=== PATIENT | male | born 1955 | race Caucasian/White ===

== ENCOUNTER 2022-11-18 13:53 | Inpatient (IN) | payer OTHER, BC ==
[~2022-11-18] VITALS: Ht 175.3 cm; Wt 122.0 kg
[2022-11-18 14:06] VITALS: BP 158/69
--- NOTE | 2022-11-18 14:16 | NUR ---
67 y/o male biba from [facility], c/o sob, increased wheezing, cough, congestion that worsened today. pt on RA at scene was 91%, pt was started on nebulizer tx, pt o2 saturation was 93% ra, fire placed pt on nc 4L currently saturation at 96%. a&ox4, ambulates with steady gait. pt still has audible crackles after neb tx, but states he feels less sob. pt currently at 95% at ra. pmh: htn, afib, ablation nka med: valsartan, eliquis, multaq, carvedilol
--- NOTE | 2022-11-18 14:23 | NUR ---
covid and flu swabbed at this time
[2022-11-18] MEDS ORDERED: methylPREDNISolone SS 125 MG/2 ML VIAL IVP ONE (14:25)
[2022-11-18] MEDS ORDERED: ALBUTEROL SULFATE/IPRATROPIU 3 ML SOL IH ONE (14:25)
[2022-11-18 14:57] LABS: BASOPHILS # (AUTO) 0.3 K/uL (0.00-0.22); BASOPHILS % (AUTO) 1.2 % (0.0-2.0); EOSINOPHILS # (AUTO) 0.1 K/uL (0-0.4); EOSINOPHILS % (AUTO) 0.3 % (0.0-4.0); HEMATOCRIT 33.1 % (36-52); HEMOGLOBIN 10.6 g/dL (12.0-18.0); LYMPHOCYTES # (AUTO) 3.1 K/uL (2.0-11.5); LYMPHOCYTES % (AUTO) 14.3 % (20.5-51.1); MEAN CORPUSCULAR HEMOGLOBIN 21 pg (27-31); MEAN CORPUSCULAR HGB CONC 32 g/dL (33-37); MEAN CORPUSCULAR VOLUME 64.6 fL (80-94); MONOCYTES # (AUTO) 1.3 K/uL (0.8-1.0); MONOCYTES % (AUTO) 6.2 % (1.7-9.3); NEUTROPHILS # (AUTO) 16.9 K/uL (1.8-7.7); PLATELET COUNT (AUTO) 424 K/uL (140-450); RED BLOOD CELL COUNT(AUTO) 5.13 MIL/uL (4.20-6.10); RED CELL DISTRIBUTION WIDTH 19.9 % (11.6-13.7)
[2022-11-18 15:12] LABS: ANION GAP 9.1 (8-16); CARBON DIOXIDE 30.8 mmol/L (21-32); CREATININE 0.9 mg/dL (0.6-1.3); POTASSIUM 3.9 mmol/L (3.5-5.1)
[2022-11-18 15:17] LABS: WHITE BLOOD COUNT (AUTO) 21.7 K/uL (4.8-10.8)
--- NOTE | 2022-11-18 15:17 | NUR ---
received in [facility] for sob, wheezing, cough. per ems spo2 90 % ra. albuterol tx en route and in ed. spo2 94 %. hx afib, ablation, htn. ble edema 1 +. resp even and nonlabored. speaks f/c sentences. denies chest pain,n,v,d,fever, chills. aao x4
[2022-11-18 15:19] LABS: ALBUMIN 3.6 g/dL (3.4-5.0); TOTAL BILIRUBIN 2.4 mg/dL (0.0-1.0)
[2022-11-18] MEDS ORDERED: AZITHROMYCIN 500 MG in DEXTROSE 5% 250 ML IV ONE (15:30)
[2022-11-18] MEDS ORDERED: cefTRIAXone 1,000 MG VIAL ONE ×2 (15:43→15:59)
[2022-11-18] MEDS ORDERED: AZITHROMYCIN 500 MG INJ VIAL IV ONE (15:59)
--- NOTE | 2022-11-18 16:11 | NUR ---
blood cx drawn by lab. iv atb initiated. spo2 88 % ra. placed on o2 @ 2lpm via ns. spo2 improved to 94 %. pending admission
[2022-11-18] MEDS ORDERED: POTASSIUM CHLORIDE 10 MEQ TABER PO PRN (16:50)
[2022-11-18] MEDS ORDERED: MAG SULF 2000 MG/WATER PREMIX 50 ML IV PRN (16:50)
[2022-11-18] MEDS ORDERED: LORazepam 2 MG/ML VIAL IVP PRN (16:50)
[2022-11-18] MEDS ORDERED: DOCUSATE SODIUM 100 MG GELCAP PO PRN (16:50)
[2022-11-18] MEDS ORDERED: ONDANSETRON 4 MG/2 ML VIAL IVP PRN (16:50)
[2022-11-18] MEDS ORDERED: CARV6.25 PO (16:54)
[2022-11-18] MEDS ORDERED: HYDR-4004 PO (16:54)
[2022-11-18] MEDS ORDERED: VALS160T2 PO (16:54)
[2022-11-18] MEDS ORDERED: ROSU10TA1 PO (16:54)
[2022-11-18] MEDS ORDERED: APIX5TAB PO (16:54)
[2022-11-18] MEDS ORDERED: AMLO5TAB PO (16:54)
[2022-11-18] MEDS ORDERED: DRON400T5 PO (16:54)
--- NOTE | 2022-11-18 16:54 | NUR ---
resting in [place]. aao x4. resp even and nonlabored. vss. on o2 @ 2lpm via c. med rec done. pending admission
[2022-11-18] MEDS: AZITHROMYCIN 500 MG in DEXTROSE 5% 250 ML IV SCH (17:00)
--- NOTE | 2022-11-18 18:53 | NUR ---
given dinner tray
--- NOTE | 2022-11-18 19:15 | NUR ---
report given to chastity chamberlain
--- NOTE | 2022-11-18 19:30 | NUR ---
Resting comfortably at this time. No s/s distress.
[2022-11-18] MEDS ORDERED: methylPREDNISolone SS 40 MG in WATER STERILE 1 ML IV SCH (21:00)
[2022-11-18] MEDS ORDERED: ZOLPIDEM 5 MG TAB ONE (21:22)
[2022-11-18] MEDS: methylPREDNISolone SS 40 MG/ML VIAL IVP SCH (21:28)
[2022-11-18] MEDS: carvediloL 6.25 MG TAB PO SCH (21:30)
[2022-11-18] MEDS: APIXABAN 2.5 MG TAB PO SCH (21:30)
[2022-11-18] MEDS: ZOLPIDEM 10 MG TAB PO PRN (21:31)
--- NOTE | 2022-11-18 21:50 | NUR ---
Pt assisted to restroom. Gait steady. No s/s distress.
--- NOTE | 2022-11-18 23:20 | NUR ---
Pt resting comfortably. extra pillows given
--- NOTE | 2022-11-19 00:31 | NUR ---
Assisted to restroom, gait steady. Noted with SOB when ambulating. VSS. O2 sat 91% on 2L
--- NOTE | 2022-11-19 03:52 | NUR ---
Resting comfortably at this time. No s/s distress noted. VSS. O2 sat 91% on RA
[2022-11-19] MEDS: ACETAMINOPHEN 325 MG TAB PO PRN (04:23)
--- NOTE | 2022-11-19 04:23 | NUR ---
Pt c/o 01/20 generalized pain. prn tylenol given as ordered.
--- NOTE | 2022-11-19 05:39 | NUR ---
Pt noted resting comfortably. No s/s discomfort. No s/s distress. VSS
--- NOTE | 2022-11-19 07:24 | NUR ---
Report given to Juno CHACON
--- NOTE | 2022-11-19 07:25 | NUR ---
PT CALM AND RESTING. AAO4, VITALS STABLE.
[2022-11-19 07:28] LABS: HEMOGLOBIN 10.3 g/dL (12.0-18.0); MEAN CORPUSCULAR HEMOGLOBIN 20 pg (27-31); MEAN CORPUSCULAR HGB CONC 31 g/dL (33-37); MEAN CORPUSCULAR VOLUME 65.2 fL (80-94); PLATELET COUNT (AUTO) 413 K/uL (140-450); RED BLOOD CELL COUNT(AUTO) 5.06 MIL/uL (4.20-6.10); RED CELL DISTRIBUTION WIDTH 20.2 % (11.6-13.7); WHITE BLOOD COUNT (AUTO) 21.5 K/uL (4.8-10.8)
[2022-11-19 07:44] LABS: ANION GAP 8.5 (8-16); CREATININE 0.8 mg/dL (0.6-1.3); POTASSIUM 4.5 mmol/L (3.5-5.1)
[2022-11-19 08:30] LABS: BASOPHILS % (MANUAL) 0 % (0-2); EOSINOPHILS % (MANUAL) 0 % (0-4); LYMPHOCYTES % (MANUAL) 3 % (20-46); MONOCYTES % (MANUAL) 1 % (5-12)
[2022-11-19] MEDS: carvediloL 6.25 MG TAB PO SCH (09:17)
[2022-11-19] MEDS: methylPREDNISolone SS 40 MG/ML VIAL IVP SCH ×2 (09:17→21:42)
[2022-11-19] MEDS: APIXABAN 2.5 MG TAB PO SCH ×2 (09:18→21:43)
--- NOTE | 2022-11-19 09:30 | NUR ---
RT AT BEDSIDE FOR BR TX
[2022-11-19] MEDS: hydroCHLOROthiazide 25 MG TAB PO SCH (09:34)
[2022-11-19] MEDS: ALBUTEROL 0.083% 2.5 MG/3 ML NEBU INH PRN ×2 (11:04→13:45)
--- NOTE | 2022-11-19 16:56 | NUR ---
MOVED TO ER BED 5
[2022-11-19] MEDS ORDERED: AZITHROMYCIN 500 MG INJ VIAL IV ONE ×2 (17:20→18:13)
[2022-11-19] MEDS ORDERED: cefTRIAXone 1,000 MG VIAL ONE (17:21)
[2022-11-19] MEDS: amLODIPine 5 MG TAB PO SCH (17:30)
[2022-11-19] MEDS: AZITHROMYCIN 500 MG in DEXTROSE 5% 250 ML IV SCH (18:19)
[2022-11-19] MEDS ORDERED: FUROSEMIDE 20 MG/2 ML VIAL IVP SCH (18:40)
--- NOTE | 2022-11-19 20:34 | NUR ---
initial assessment- pt sitting upright on 2l nasal canula, aox4, says he came in for unrelieved breathing difficulties. reports no currents episode of distress but wants to have rt come give breathing treatment sometime in the night. ambulates to restroom without assistance. states he wants to home in the morning no matter what. 400 ml of urine noted to be in urinal. calm and positive affect noted with a sign of impatience
--- NOTE | 2022-11-19 20:35 | NUR ---
Respiratory Therapist at bedside for respiratory intervention.
[2022-11-19] MEDS: VALSARTAN 80 MG TAB PO SCH (21:42)
[2022-11-19] MEDS: MORPHINE SULFATE 2 MG/ML SYR IVP PRN (21:43)
[2022-11-19] MEDS: ZOLPIDEM 10 MG TAB PO PRN (23:41)
[2022-11-20] MEDS: ALBUTEROL 0.083% 2.5 MG/3 ML NEBU INH PRN ×3 (02:24→20:03)
[2022-11-20 06:47] LABS: HEMATOCRIT 32.7 % (36-52); HEMOGLOBIN 10.4 g/dL (12.0-18.0); MEAN CORPUSCULAR HEMOGLOBIN 21 pg (27-31); MEAN CORPUSCULAR HGB CONC 32 g/dL (33-37); MEAN CORPUSCULAR VOLUME 64.6 fL (80-94); PLATELET COUNT (AUTO) 410 K/uL (140-450); RED BLOOD CELL COUNT(AUTO) 5.06 MIL/uL (4.20-6.10); RED CELL DISTRIBUTION WIDTH 20.2 % (11.6-13.7)
[2022-11-20 07:14] LABS: ANION GAP 12.4 (8-16); CARBON DIOXIDE 30.8 mmol/L (21-32); CREATININE 0.9 mg/dL (0.6-1.3); POTASSIUM 4.2 mmol/L (3.5-5.1)
--- NOTE | 2022-11-20 07:15 | NUR ---
Report recieved from [facility] Tavares for transfer of care.
--- NOTE | 2022-11-20 08:10 | NUR ---
Patient was offered breakfast tray. Left tray at bedside.
--- NOTE | 2022-11-20 08:18 | NUR ---
Patient ambulated to restroom with steady gait.
[2022-11-20] MEDS: methylPREDNISolone SS 40 MG/ML VIAL IVP SCH ×2 (08:33→21:22)
[2022-11-20] MEDS: APIXABAN 2.5 MG TAB PO SCH ×2 (08:34→21:18)
[2022-11-20] MEDS: hydroCHLOROthiazide 25 MG TAB PO SCH (08:35)
[2022-11-20] MEDS: VALSARTAN 80 MG TAB PO SCH ×2 (08:35→22:52)
[2022-11-20 09:08] LABS: WHITE BLOOD COUNT (AUTO) 30.3 K/uL (4.8-10.8)
[2022-11-20 09:09] LABS: CORRECTED WHITE BLOOD COUNT 28.9 K/uL (4.5-11.0); LYMPHOCYTES % (MANUAL) 4 % (20-46); MONOCYTES % (MANUAL) 2 % (5-12)
[2022-11-20] MEDS ORDERED: MELATONIN 3 MG TAB PO PRN ×2 (09:22→09:24)
--- NOTE | 2022-11-20 09:25 | NUR ---
PATIENT HAS BEEN SCREENED AND CATEGORIZED MODERATE NUTRITION RISK. PATIENT WILL BE SEEN WITHIN 3-5 DAYS OF ADMISSION. 11/18/22-11/23/[address]
--- NOTE | 2022-11-20 10:42 | NUR ---
Dr. Burns, admitting doctor, evaluating patient at bedside.
--- NOTE | 2022-11-20 11:46 | NUR ---
RT at bedside.
--- NOTE | 2022-11-20 11:48 | NUR ---
Teodoro jean in [facility] - 11/20/22 at 1154 by CANDY Patient left AMA.
--- NOTE | 2022-11-20 14:55 | NUR ---
Patient was taken to shower.
--- NOTE | 2022-11-20 15:59 | NUR ---
Dr. Oshea, [employer] res[employer] evaluating patient at bedside.
[2022-11-20] MEDS ORDERED: cefTRIAXone 1,000 MG VIAL ONE (17:04)
[2022-11-20] MEDS ORDERED: AZITHROMYCIN 500 MG INJ VIAL IV ONE (17:04)
--- NOTE | 2022-11-20 17:51 | NUR ---
Patient was offered dinner tray. Patient is sitting up eating.
[2022-11-20] MEDS: amLODIPine 5 MG TAB PO SCH (18:09)
[2022-11-20] MEDS: AZITHROMYCIN 500 MG in DEXTROSE 5% 250 ML IV SCH (18:30)
--- NOTE | 2022-11-20 19:20 | NUR ---
Pt report given to [facility] Alarcon. Transfer of care at this time.
--- NOTE | 2022-11-20 19:27 | NUR ---
pt i slaert and oriented . sitting on the bed. lower bed. pt tolerated well
[2022-11-20] MEDS: MORPHINE SULFATE 2 MG/ML SYR IVP PRN (21:25)
[2022-11-20] MEDS ORDERED: SIMVASTATIN 40 MG TAB ONE (21:42)
--- NOTE | 2022-11-20 23:00 | NUR ---
patient is resting on the bed asking for a sleeping pills. bed lower.
--- NOTE | 2022-11-21 07:30 | NUR ---
REPORT RECEIVED FROM DOV CHACON . ASSUMED CARE AT THIS TIME
[2022-11-21 07:38] LABS: BASOPHILS % (AUTO) 0.1 % (0.0-2.0); EOSINOPHILS # (AUTO) 0.1 K/uL (0-0.4); EOSINOPHILS % (AUTO) 0.4 % (0.0-4.0); HEMATOCRIT 33.6 % (36-52); HEMOGLOBIN 10.6 g/dL (12.0-18.0); LYMPHOCYTES # (AUTO) 8.9 K/uL (2.0-11.5); LYMPHOCYTES % (AUTO) 42.6 % (20.5-51.1); MEAN CORPUSCULAR HEMOGLOBIN 20 pg (27-31); MEAN CORPUSCULAR HGB CONC 32 g/dL (33-37); MEAN CORPUSCULAR VOLUME 64.2 fL (80-94); MONOCYTES # (AUTO) 0.6 K/uL (0.8-1.0); MONOCYTES % (AUTO) 2.9 % (1.7-9.3); NEUTROPHILS # (AUTO) 11.3 K/uL (1.8-7.7); PLATELET COUNT (AUTO) 439 K/uL (140-450); RED BLOOD CELL COUNT(AUTO) 5.23 MIL/uL (4.20-6.10); WHITE BLOOD COUNT (AUTO) 20.9 K/uL (4.8-10.8)
[2022-11-21 07:57] LABS: ANION GAP 12.6 (8-16); CARBON DIOXIDE 31.4 mmol/L (21-32); CREATININE 0.9 mg/dL (0.6-1.3)
--- NOTE | 2022-11-21 08:00 | NUR ---
pt provided w/ breakfast. pt awake and eating in bed
--- NOTE | 2022-11-21 08:44 | NUR ---
Patient will be admitted to care of MD FUNK. Admited to TELE. Will go to room 126A . Belongings list completed. Report to FRANDY CHACON.
[2022-11-21] MEDS: VALSARTAN 80 MG TAB PO SCH ×2 (09:00→21:34)
[2022-11-21] MEDS: APIXABAN 2.5 MG TAB PO SCH ×2 (09:00→21:35)
[2022-11-21] MEDS: methylPREDNISolone SS 40 MG/ML VIAL IVP SCH ×2 (09:00→21:33)
[2022-11-21] MEDS: hydroCHLOROthiazide 25 MG TAB PO SCH (09:00)
[2022-11-21 12:00] VITALS: BP 135/72
[2022-11-21] MEDS ORDERED: FUROSEMIDE 20 MG/2 ML VIAL IVP SCH (13:23)
[2022-11-21 16:00] VITALS: BP 151/79
--- NOTE | 2022-11-21 16:00 | NUR ---
DC PLANNING SW MET WITH PT AT BEDSIDE TO COMPLETE ASSESSMENT. PT IS ALERT AND ORIENTED X4 AND IS ABLE TO PROVIDE HIS OWN INFORMATION. PT REPORTS RESIDING IN A SINGLE STORY HOME, ALONE AT THE ADDRESS LISTED ON FILE. PT IDENTIFIES ALENA MORRISON, COUSIN, AND [phone] EMERGENCY CONTACT. PT REPORTS AD IN PLACE, NAMING AGENT , RICHIE GLYNN, FRIEND, . PT MEETING WITH PCP DR. SALGADO, NEEDED, LAST VISIT 08/04. PT REPORTS MEDICATION COMPLIANCE AND REPORTS RECEIVING MEDICATION FROM [facility] ON [facility]ELINE IN [place] , WHEN NEEDED. PT REPORTS BEING INDEPENDENT IN ALL ACTIVITIES AND DENIES USE OF DME. PT COMPLETES ADL'S INDEPENDENTLY. PT DENIES MH/REED HX. PT DENIES MH/SUB HX. PT DENIES HX OF DIABETES, DIALYSIS TX, HH, SNF PLACEMENT, AND HOSPICE CARE. PT REPORTS ADEQUATE FRIEND AND FAMILY SUPPORT AND REPORTS ADEQUATE ACCESS TO FOOD. PT REPORTS DC PLAN IS TO RETURN HOME, HOWEVER, REPORTS HE MAY REQUIRE [facility]SPORT[facility] TO [facility], WHERE HIS CAR IS PARKED. SW ENCOURAGED PT TO NOTIFY NURSE OF NEEDED RIDE SHARE WHEN CLEARED FOR DC. SW INQUIRED ON RESOURCES NEEDED, PT DECLINED. Addendum: 11/22/22 at 0837 by Yovanny GODINEZ Amended: Links added.
[2022-11-21] MEDS: AZITHROMYCIN 500 MG in DEXTROSE 5% 250 ML IV SCH (17:00)
[2022-11-21] MEDS: amLODIPine 5 MG TAB PO SCH (18:15)
--- NOTE | 2022-11-21 19:30 | NUR ---
RECEIVED REPORT FROM DAY SHIFT NURSE FRANDY FOR CONTINUITY OF CARE. PATIENT IS STABLE.
[2022-11-21] MEDS: ALBUTEROL 0.083% 2.5 MG/3 ML NEBU INH PRN (19:50)
[2022-11-21 20:00] VITALS: BP 140/87
[2022-11-21] MEDS: MORPHINE SULFATE 2 MG/ML SYR IVP PRN (21:36)
--- NOTE | 2022-11-22 05:30 | NUR ---
PATIENT REFUSED 0000 VITALS, 0400 VITALS AND 0500 LABS. WANTING TO SLEEP AND REQUESTING THAT THEY DO THEM LATER IN THE MORNING. WILL INFORM DAY SHIFT NURSE.
--- NOTE | 2022-11-22 07:26 | NUR ---
CHECKED ON PT. HE WAS SITTING IN HIS CHAIR STATED HE SLEPT GOOD AND IS HAVING ZERO DISTRESS. NO NEED FOR TX HE SAID. LET PT KNOW IF ANYTHING CHANGES TO CALL RT.
--- NOTE | 2022-11-22 07:30 | NUR ---
ENDORSED TO DAY SHIFT NURSE FRANDY FOR CONTINUITY OF CARE. PATIENT IS STABLE.
[2022-11-22 08:00] VITALS: BP 148/65
[2022-11-22] MEDS ORDERED: FUROSEMIDE 20 MG/2 ML VIAL IVP SCH (09:00)
[2022-11-22] MEDS: VALSARTAN 80 MG TAB PO SCH ×2 (09:10→20:17)
[2022-11-22] MEDS: APIXABAN 2.5 MG TAB PO SCH ×2 (09:10→21:00)
[2022-11-22] MEDS: methylPREDNISolone SS 40 MG/ML VIAL IVP SCH ×3 (09:10→20:18)
[2022-11-22] MEDS: hydroCHLOROthiazide 25 MG TAB PO SCH (09:11)
[2022-11-22 12:00] VITALS: BP 137/68
[2022-11-22] MEDS: ALBUTEROL 0.083% 2.5 MG/3 ML NEBU INH PRN (15:05)
[2022-11-22 16:00] VITALS: BP 142/65
--- NOTE | 2022-11-22 16:45 | NUR ---
11/22/22 RD INITIAL ASSESSMENT COMPLETED PLEASE REFER TO NUTRITION ASSESSMENT UNDER CARE ACTIVITY FOR ESTIMATED NUTRITIONAL NEEDS. 1. CONTINUE CARDIAC DIET 2. RECOMMEND ADDING CCHO 60 GRAM TO DIET. 3. MONITOR GI, PO INTAKE, BLOOD GLUCOSE, AND LAB VALUES. 4. RD TO FOLLOW-UP 7 DAYS, LOW RISK REVIEWED BY YEN JOYNER RD
[2022-11-22] MEDS: AZITHROMYCIN 500 MG in DEXTROSE 5% 250 ML IV SCH (17:11)
[2022-11-22] MEDS: amLODIPine 5 MG TAB PO SCH (17:11)
[2022-11-22] MEDS: FUROSEMIDE 20 MG/2 ML VIAL IVP SCH (17:11)
[2022-11-22] MEDS ORDERED: ACETYLCYSTEINE 20% (200 MG/ML) 200 MG/ML VIAL INH SCH (17:35)
--- NOTE | 2022-11-22 19:30 | NUR ---
RECEIVED REPORT FROM DAY SHIFT NURSE FOR CONTINUITY OF CARE. PATIENT AWAKE, ALERT AND ORIENTED X 4 ON 2L O2 VIA NC, NO S/SX OF DISTRESS. NO COMPLAINS OF PAIN. SKIN WARM, DRY AND INTACT. IV ON L AC G20,SL. ALL PRECAUTIONS IN PLACE. CALL LIGHT WITHIN REACH. WILL CONTINUE TO MONITOR.
[2022-11-22 20:00] VITALS: BP 106/70
--- NOTE | 2022-11-22 21:00 | NUR ---
SCHEDULED MEDICATIONS GIVEN. PT TOLERATED WELL. WILL CONTINUE TO MONITOR.
[2022-11-23] VITALS: BP 106/70
--- NOTE | 2022-11-23 01:23 | NUR ---
PT ASLEEP. NO S/SX OF DISTRESS NOTED. BREATHING EVEN AND UNLABORED. VITALS STABLE. ALL PRECAUTIONS IN PLACE. WILL CONTINUE TO MONITOR.
[2022-11-23 04:00] VITALS: BP 125/75
[2022-11-23] MEDS: methylPREDNISolone SS 40 MG/ML VIAL IVP SCH (04:22)
[2022-11-23] MEDS: ACETAMINOPHEN 325 MG TAB PO PRN (05:18)
[2022-11-23 05:52] LABS: BASOPHILS % (AUTO) 0.2 % (0.0-2.0); EOSINOPHILS # (AUTO) 0.1 K/uL (0-0.4); EOSINOPHILS % (AUTO) 0.4 % (0.0-4.0); HEMATOCRIT 37.6 % (36-52); HEMOGLOBIN 12.4 g/dL (12.0-18.0); LYMPHOCYTES # (AUTO) 9.1 K/uL (2.0-11.5); MEAN CORPUSCULAR HEMOGLOBIN 21 pg (27-31); MEAN CORPUSCULAR HGB CONC 33 g/dL (33-37); MEAN CORPUSCULAR VOLUME 62.5 fL (80-94); MONOCYTES # (AUTO) 0.4 K/uL (0.8-1.0); MONOCYTES % (AUTO) 2.6 % (1.7-9.3); NEUTROPHILS # (AUTO) 4.9 K/uL (1.8-7.7); NEUTROPHILS % (AUTO) 33.8 % (42.2-75.2); PLATELET COUNT (AUTO) 540 K/uL (140-450); RED BLOOD CELL COUNT(AUTO) 6.02 MIL/uL (4.20-6.10); RED CELL DISTRIBUTION WIDTH 18.8 % (11.6-13.7); WHITE BLOOD COUNT (AUTO) 14.5 K/uL (4.8-10.8)
[2022-11-23 06:40] LABS: CARBON DIOXIDE 33.2 mmol/L (21-32); CREATININE 0.8 mg/dL (0.6-1.3); POTASSIUM 4.2 mmol/L (3.5-5.1)
--- NOTE | 2022-11-23 06:52 | NUR ---
PT IS STABLE. NO ACUTE EVENTS THROUGHOUT THE NIGHT. NO S/SX OF DISTRESS AT THIS MOMENT. ALL NEEDS ATTENDED. ALL PRECAUTIONS IN PLACE. CALL LIGHT WITHIN REACH. WILL CONTINUE TO MONITOR.
[2022-11-23 08:00] VITALS: BP 147/57
[2022-11-23] MEDS: FUROSEMIDE 20 MG/2 ML VIAL IVP SCH (09:18)
[2022-11-23] MEDS: APIXABAN 2.5 MG TAB PO SCH (09:19)
[2022-11-23] MEDS: hydroCHLOROthiazide 25 MG TAB PO SCH (09:20)
[2022-11-23] MEDS: VALSARTAN 80 MG TAB PO SCH (09:20)
[2022-11-23] MEDS ORDERED: ALBU117P INH (10:17)
[2022-11-23] MEDS ORDERED: CEPH-588 PO (10:17)
--- NOTE | 2022-11-23 10:17 | NUR ---
AWAKE AND ALERT SATURATION 98% ON SUPPLEMENTAL OXYGEN AT 3 LPM VIA NC C/O SOB HHN PRN THERAPY GIVEN AT THIS TIME POST THERAPY TITRATED FIO2 TO 2 LPM
[2022-11-23] MEDS ORDERED: PRED20TA5 PO (10:18)
--- NOTE | 2022-11-23 10:45 | NUR ---
DISCHARGE TO HOME WITH A COPY OF DISCHARGE INSTRUCTIONS. INTACT [employer]TER PRESENT ON REMOVAL. ALL BELONGINGS SENT WITH PATIENT.
--- NOTE | 2022-11-29 15:58 | NUR ---
PT DC'D ON 11/23/22 AT 8100
== END 2022-11-23 10:45 | disposition home or self-care (01) | DRG 871 ==
LOC: MED 13:53 → MTU 16:46 → MMU 11-21 08:32
PROVIDERS: ADMIT Family Medicine; ATTEND Family Medicine
DX: A41.9 Sepsis, unspecified organism (principal); I50.23 Acute on chronic systolic (congestive) heart failure; J69.0 Pneumonitis due to inhalation of food and vomit; J96.01 Acute respiratory failure with hypoxia; J44.1 Chronic obstructive pulmonary disease with (acute) exacerbation; I42.9 Cardiomyopathy, unspecified; J44.0 Chronic obstructive pulmonary disease with (acute) lower respiratory infection; I11.0 Hypertensive heart disease with heart failure; Z20.822 Contact with and (suspected) exposure to COVID-19; I48.91 Unspecified atrial fibrillation; E80.6 Other disorders of bilirubin metabolism; F17.200 Nicotine dependence, unspecified, uncomplicated; D64.9 Anemia, unspecified; E78.5 Hyperlipidemia, unspecified; Z79.01 Long term (current) use of anticoagulants; Z79.899 Other long term (current) drug therapy
CPT/HCPCS: 36415; 71045; 80048; 80053; 83605; 83735; 83880; 84484; 85025; 87040; 87081; 93005; 94640; 96374; 96375; 97116; 99285; J0456; J0696; J1940; J2270; J2920; J2930; J7060; J7613; Q0092